=== PATIENT | female | born 1945 | race Caucasian/White ===

== ENCOUNTER → 2018-07-16 | Outpatient (CLI) | payer MEDICARE ==
[~2018-07-16] MED LIST: ASPIRIN 32325 MG/TAB PO; ASPIRIN E.C. 8181 MG PO; CALCIUM CITRAT200 MG PO; CENTRUM SILVER1 TA2 PO; CRESTOR 10MG10 MG PO; FISH OIL500 MG PO; GLUCOPHAGE500 MG/TAB PO; NEXIUM 40MG40 MG PO; PRIL40 PO; PRILOSEC 20MG20 MG PO; PROTONIX 40MG T40 MG PO
== END ==
LOC: COL.RAD 08:49
DX: M18.0 Bilateral primary osteoarthritis of first carpometacarpal joints (principal)
CPT/HCPCS: J3301; Q9967

== ENCOUNTER → 2018-07-29 | Outpatient (CLI) | payer MEDICARE | LOC: COL.RAD 12:45 | DX: M67.431 Ganglion, right wrist (principal); M18.11 Unilateral primary osteoarthritis of first carpometacarpal joint, right hand; M85.841 Other specified disorders of bone density and structure, right hand; S63.591A Other specified sprain of right wrist, initial encounter | CPT/HCPCS: A9585; Q9967 ==

== ENCOUNTER 2019-10-02 09:13 | Day surgery (SDC) | payer MEDICARE, OTHER ==
[~2019-10-02] VITALS: Ht 170.2 cm; Wt 83.8 kg
[2019-10-02] MEDS ORDERED: ZETIA 10MG TAB10 MG PO (09:53)
[2019-10-02] MEDS ORDERED: DEXILANT60 MG PO (09:53)
[2019-10-02] MEDS ORDERED: INFLUENZA VACCINE INJ (09:54)
[2019-10-02 09:55] VITALS: BP 121/80; PULSE 54; TEMP 98.5
[2019-10-02] MEDS ORDERED: AVAPRO300 M1 PO (09:55)
[2019-10-02] MEDS ORDERED: GLUCOPHAGE500 MG/TAB PO (09:55)
[2019-10-02 11:00] VITALS: BP 105/62; PULSE 59
--- NOTE | 2019-10-02 11:00 | NUR ---
Pt to [facility] via cart from [facility]. Pt drowsy, but awake. Pt ambulates to recliner with stand by assistance. Warm blankets provided. VSS. Coffee, muffin and pudding given per pt request. Sister in room. Pt denies pain or nausea. Call light within reach.
[2019-10-02 11:15] VITALS: BP 101/63; PULSE 61
--- NOTE | 2019-10-02 11:15 | NUR ---
Pt tolerating food and fluids without difficulties. Pt denies needs. Call light within reach.
[2019-10-02 11:30] VITALS: BP 101/60; PULSE 63
--- NOTE | 2019-10-02 11:30 | NUR ---
Pt continues to rest. Denies needs. Call light within reach.
[2019-10-02 11:45] VITALS: BP 97/82; PULSE 62
--- NOTE | 2019-10-02 11:45 | NUR ---
Pt visiting with her sister. Denies needs. Call light within reach.
--- NOTE | 2019-10-02 12:00 | NUR ---
IV site discontinued with all parts intact. Discharge instructions reviewed. Pt voices understanding. Pt up to dress. Call light within reach.
--- NOTE | 2019-10-02 12:15 | NUR ---
Pt escorted to private car via wheel chair. Pt accompanied home by her sister.
== END 2019-10-02 12:15 | disposition home or self-care (01) ==
LOC: SDCO 09:13
DX: D12.5 Benign neoplasm of sigmoid colon (principal); K57.30 Diverticulosis of large intestine without perforation or abscess without bleeding; K21.9 Gastro-esophageal reflux disease without esophagitis; K44.9 Diaphragmatic hernia without obstruction or gangrene; Z86.010 Personal history of colon polyps; Z88.1 Allergy status to other antibiotic agents; Z88.6 Allergy status to analgesic agent; Z88.3 Allergy status to other anti-infective agents; Z79.82 Long term (current) use of aspirin; E78.00 Pure hypercholesterolemia, unspecified; E66.9 Obesity, unspecified; Z68.30 Body mass index [BMI] 30.0-30.9, adult
CPT/HCPCS: J2250; J3010; J7030